=== PATIENT | male | born 1990 | race Two or more races ===

== ENCOUNTER 2019-01-31 02:49 | Emergency (ER) | payer SELFPAY ==
[~2019-01-31] VITALS: Ht 177.8 cm; Wt 118.0 kg
[2019-01-31 03:02] VITALS: BP 139/82
[2019-01-31] MEDS ORDERED: PERTUSS(ACELL),DIPH,TET VAC/PF 0.5 ML VIAL IM ONE ×2 (03:07→03:15)
[2019-01-31] MEDS ORDERED: CeFAZolin 1 GM/DEXTROSE 50 ML IV ONE ×2 (03:07→03:15)
== END 2019-01-31 03:12 | disposition short-term general hospital (02) ==
LOC: EMS 02:50
DX: S31.119A Laceration without foreign body of abdominal wall, unspecified quadrant without penetration into peritoneal cavity, initial encounter (principal); W26.8XXA Contact with other sharp object(s), not elsewhere classified, initial encounter; Y93.89 Activity, other specified; Y92.89 Other specified places as the place of occurrence of the external cause; Y99.8 Other external cause status
CPT/HCPCS: 90471; 90715; 96374; 99285; J0690